=== PATIENT | male | born 1940 | race Caucasian/White ===

== ENCOUNTER 2017-08-15 10:01 | Day surgery (SDC) | payer MEDICARE, OTHER ==
[2017-08-08 15:55] VITALS: BMI 24.3
[~2017-08-15 10:01] MED LIST: DEXAMETHASONE SOD PHOSPHATE 10 MG/ML 1 ML VIAL IV ONE; DEXAMETHASONE SOD PHOSPHATE 4 MG/ML 1 ML VIAL IV ONE; FAMOTIDINE 20 MG/2 ML VIAL IV ONE; HYDROmorphone 0.5 MG/0.5 ML SYRINGE IVP PRN; LACTATED RINGERS 1,000 ML IV SCH; LIDOCAINE 1% 20 ML VIAL (10MG/ML) FOR IV START INTRADERMA PRN; MIDAZOLAM 2 MG/2 ML VIAL IV PRN; ONDANSETRON 4 MG/2 ML VIAL IVP ONE; SCOPOLAMINE 1.5MG/72HR PATCH TRANSDERM ONE; ceFAZolin 1,000 MG in DEXTROSE/WATER 1 50ML.BAG IV ONE
[2017-08-15] MEDS: OXYMETAZOLINE 0.05% NASL SPRAY 1 SPRAY BOTTLE NASAL ONE ×6 (10:59→11:19)
[2017-08-15] MEDS ORDERED: fentaNYL (PF) 50 MCG/ML 2 ML AMP ONE (12:10)
[2017-08-15] MEDS ORDERED: LIDOCAINE 1% INJ 10MG/ML (20 ML MDV) ONE (12:10)
[2017-08-15] MEDS ORDERED: SUCCINYLCHOLINE CHLORIDE 100 MG/5 ML SYR IV ONE (12:10)
[2017-08-15] MEDS ORDERED: PROPOFOL 10 MG/ML 20 ML VIAL IV ONE (12:10)
[2017-08-15] MEDS ORDERED: MIDAZOLAM 2 MG/2 ML VIAL ONE (12:10)
[2017-08-15] MEDS ORDERED: SODIUM CHLORIDE 0.9% 50 ML with ceFAZolin 2,000 MG IV ONE ×2 (12:20)
[2017-08-15] MEDS ORDERED: CEFAZOLIN IV ONE ×3 (12:39)
[2017-08-15] MEDS ORDERED: [UNRECOGNIZED DRUG - OTHER] IV ONE ×3 (12:39)
[2017-08-15] MEDS ORDERED: SODIUM CHLORIDE IV ONE ×3 (12:39)
[2017-08-15] MEDS ORDERED: LIDOCAINE-EPINEPHRINE (PF) 5 ML AMPUL SUBMUCOSAL ONE (12:42)
--- NOTE | 2017-08-15 13:15 | P.OP ---
Date of Procedure: 08/15/17 Preoperative Diagnosis: right tongue ulcer Right base of tongue lesion Chronic maxillary sinusitis Postoperative Diagnosis: Same Procedure(s) Performed: direct microscopic laryngoscopy and biopsy of a right base of tongue lesion Excisional biopsy of a right posterior tongue mass with closure Bilateral direct maxillary antrostomy with lavage Anesthesia: TOLU Surgeon: Rebekah Christian Estimated Blood Loss (ml): 10 Pathology: other (Right tongue and right base of tongue) Condition: stable Disposition: PACU Indications for Procedure: this patient has a lesion of the right tongue with referred pain to the right ear. He also has a lesion of the base the tongue on the right and another one on the lateral posterior tongue. removal was recommended. The patient also had chronic sinusitis maxillary and did well years ago when he had a maxillary antrostomy and lavage. He wished to proceed forward with a repeat lavage. Operative Findings: patient had a friable lesion right base of tongue and another lesion of the right lateral posterior tongue. Patient had rebekah pus coming from the ostiomeatal complexes bilaterally and maxillary sinuses bilaterally. Description of Procedure: this patient was taken to the operative room and placed in the supine position. A general inhalation anesthetic is administered to the patient by mask and subsequently intubated with a cuffed endotracheal tube by the department of anesthesia with a functioning IV line in place. The patient was monitored throughout the entire case by the department of anesthesia. A tooth guard was placed and a Jako laryngoscope was placed into the patient's mouth with care to avoid any trauma to the lips teeth gums or tongue. The entire hypopharynx was evaluated along with evaluation the oropharynx. We reviewed the base of the tongue, vallecula, epiglottis, true and false vocal cords, lateral pharynx, piriform sinuses, and postcricoid space. This was done with microscopic visualization. Percent suspension on a Lewy and a lesion of the right base the tongue was identified and biopsied. Scope was removed tongue was evaluated and the right lateral posterior tongue had another lesion was friable. This area was anesthetized and excised with a 15 blade delicate plastic scissors and a Brown-Lilly forceps and we closed this biopsy with use of a 4 rapid Vicryl in an interrupted type fashion. Excellent approximation was obtained. we then paid attention to the nose were we entered the nose with a the nasal speculum and underneath the inferior turbinates open up a maxillary antrostomy with a Mallika bilaterally. After the maxillary antrostomies and nasal antral windows were open we then inserted a catheter we flushed the sinuses are bilaterally with removal of Rebekah Poss. After the maxillary sinuses were opened directly and lavaged all instrumentation was removed. The patient tolerated this well and a follow-up is scheduled for 1 week.
[2017-08-15 13:22] VITALS: TEMP 96.9
[2017-08-15 14:10] VITALS: RESP 18
[2017-08-15 14:34] VITALS: BP 148/79; PULSE 79
== END 2017-08-15 14:57 | disposition home or self-care (01) ==
LOC: OR 10:01
PROVIDERS: ATTEND Otolaryngology
DX: D36.10 Benign neoplasm of peripheral nerves and autonomic nervous system, unspecified (principal); K14.0 Glossitis; J32.0 Chronic maxillary sinusitis; K21.9 Gastro-esophageal reflux disease without esophagitis; D64.9 Anemia, unspecified; F32.9 Major depressive disorder, single episode, unspecified; K58.9 Irritable bowel syndrome, unspecified; Z90.5 Acquired absence of kidney; N40.0 Benign prostatic hyperplasia without lower urinary tract symptoms; G89.29 Other chronic pain; F41.9 Anxiety disorder, unspecified; Z88.8 Allergy status to other drugs, medicaments and biological substances; Z79.82 Long term (current) use of aspirin; Z79.891 Long term (current) use of opiate analgesic; Z79.899 Other long term (current) drug therapy
CPT/HCPCS: 31536; 41110; 88305; J2250; J1100; J2405; J0690 ×2; J2001; J3010; J0330; J2704

== ENCOUNTER → 2018-07-09 | Outpatient (CLI) | payer OTHER ==
--- NOTE | 2018-07-09 20:09 | CONS ---
CONSULTATION DATE OF SERVICE: 07/09/2018. Claus Jamison is a 77-year-old gentleman has [facility] for tiredness and sleepiness during the day for many years. SLEEP SCHEDULE: Patient's sleep schedule from 11 or 12 midnight until his alarm is on at 6 and then he may stay in bed until 8, but he really does not sleep at that time. FALLING ASLEEP: Sometimes he has problem with falling asleep. He has TV set in bedroom. DURING SLEEP: He usually sleeps on the side position. He snores. May grind his teeth. He wakes up from sleep up to 3 times with nocturia. DURING THE DAY/SLEEP WAKE EVALUATION: In the morning, he wakes up tired, has difficulties to pay attention, falling asleep during the day, worries about his sleep, has problems with memory, concentration, depression, anxiety, sexual dysfunction, and he may take naps any time according to the patient, but he usually does not take any naps. He tries not to because he thinks that might create any problems for him with falling asleep at night and is up his schedule. [place] Sleepiness Scale is 9. PAST MEDICAL HISTORY: 1. History of 7 months after returning back from [place], patient's mind was off. Many years ago, CT scans of the head showed some lesions. 2. BPH. 3. Episodes of dizziness. 4. History of acid reflux in the past. PAST SURGICAL HISTORY: Right kidney removed in nasal surgery in 1966 for nasal septum deviation. MEDICATIONS: Gabapentin, hydrocodone, baclofen, terazosin, amitriptyline, omeprazole, aspirin. SOCIAL HISTORY: Negative for smoking. Alcohol consumption none at the present time. History of overusing alcohol in the past. FAMILY HISTORY: Arthritis, snoring, headaches. REVIEW OF SYSTEMS: Multiple awakenings from sleep with nocturia, significant excessive daytime sleepiness, mild snoring. PHYSICAL EXAM: 77-year-old gentleman without distress. BP 118/69, HR 96, RR 17, height 5 feet 9 inches, weight 170.8. Body mass index 25.1, temperature 98.7, oxygen saturation room air 97%. Oropharynx moderately low position of soft palate. Neck Supple, no JVD. Thyroid is not palpable. LUNGS Clear to percussion and to auscultation. Good air exchange. No wheezing or rhonchi. HEART S1, S2 regular. No murmurs, gallops, or rubs. ABDOMEN: Soft and nontender. Bowel sounds are present. No organomegaly appreciated. EXTREMITIES No clubbing or cyanosis. DINING HOST Awake, alert, and oriented X3. Cranial nerves 2 to 7 intact. There is no fasciculation or atrophy. noted. No focal deficits observed. IMPRESSION: 1. Daytime sleepiness, tiredness. Patient may take naps any time. Differential diagnosis should include narcolepsy and hypersomnia. No history of hypnagogic hallucinations, sleep paralysis or cataplexy. 2. Mild snoring, multiple awakenings from sleep with nocturia and rule out obstructive sleep apnea. 3. Episodes of dizziness. 4. History of old brain lesion on CT scan of the head many years ago according to patient. 5. Posttraumatic stress disorder. 6. History of acid reflux. 7. History of depression. 8. History of anxiety. PLAN: 1. Polysomnography for evaluation of patient's breathing during sleep. 2. CPAP/BiPAP titration if sleep study confirms obstructive sleep apnea-hypopnea syndrome. 3. Preferable position during sleep on the side. 4. No driving if patient feels any sleepiness. 5. I will see patient for follow up visit to explain results of testing and following plan. 6. Multiple sleep latency test if the sleep study will be negative for any physical abnormalities of sleep. 7. We discussed with the patient necessity to increase bedtime to at least 8 hours. He will change time of his alarm to 8:00 am instead of 6 am. Thank you very much for referring this patient for consultation. Sincerely, Gerald Mejía MD, PhD, FAASM Diplomat of [place] [employer] [place] [employer] [facility] MMODL / IJN: [id number] /
== END ==
LOC: SLEEP 14:04
PROVIDERS: ATTEND Internal Medicine
DX: R53.83 Other fatigue (principal); R06.83 Snoring; R35.1 Nocturia; R42 Dizziness and giddiness; F43.10 Post-traumatic stress disorder, unspecified; K21.9 Gastro-esophageal reflux disease without esophagitis; F32.9 Major depressive disorder, single episode, unspecified; F41.9 Anxiety disorder, unspecified; Z86.69 Personal history of other diseases of the nervous system and sense organs; Z79.899 Other long term (current) drug therapy; Z79.82 Long term (current) use of aspirin
CPT/HCPCS: 99211

== ENCOUNTER → 2019-05-13 | Outpatient (CLI) | payer OTHER ==
[2019-05-13 11:25] LABS: HCT 36.9 % (39.0-53.0); HGB 12.3 gm/dL (13.0-17.5); MCH 31.2 pg (25.0-35.0); MCHC 33.3 g/dL (31.0-37.0); MCV 93.8 fL (80.0-100.0); Platelet Count 272 k/uL (150-450); RBC 3.93 m/uL (4.30-5.90); RDW 12.5 % (11.5-15.5); WBC 7.2 k/uL (3.8-10.6)
[2019-05-13 11:37] LABS: Potassium 4.6 mmol/L (3.5-5.1)
== END | disposition home or self-care (01) ==
LOC: LABPAT 10:48
PROVIDERS: ATTEND Internal Medicine Cardiovascular Disease
DX: Z01.812 Encounter for preprocedural laboratory examination (principal); R06.02 Shortness of breath
CPT/HCPCS: 80051; 82565; 84520; 85027

== ENCOUNTER 2019-05-20 06:43 | Day surgery (SDC) | payer OTHER ==
[2019-05-15 11:18] VITALS: BMI 27.3
[~2019-05-20 06:43] MED LIST changes: +ALPRAZolam 0.25 MG TAB PO PRN; +ALPRAZolam 0.5 MG TAB PO PRN; -DEXAMETHASONE SOD PHOSPHATE 10 MG/ML 1 ML VIAL IV ONE; -DEXAMETHASONE SOD PHOSPHATE 4 MG/ML 1 ML VIAL IV ONE; -FAMOTIDINE 20 MG/2 ML VIAL IV ONE; -HYDROmorphone 0.5 MG/0.5 ML SYRINGE IVP PRN; -LACTATED RINGERS 1,000 ML IV SCH; -LIDOCAINE 1% 20 ML VIAL (10MG/ML) FOR IV START INTRADERMA PRN; -MIDAZOLAM 2 MG/2 ML VIAL IV PRN; +NITROGLYCERIN SL TABS 0.4 MG TAB SUBLINGUAL PRN; -ONDANSETRON 4 MG/2 ML VIAL IVP ONE; -SCOPOLAMINE 1.5MG/72HR PATCH TRANSDERM ONE; -ceFAZolin 1,000 MG in DEXTROSE/WATER 1 50ML.BAG IV ONE
[2019-05-20] MEDS ORDERED: ASPIRIN 325 MG TAB PO ONE (07:00)
[2019-05-20] MEDS ORDERED: SODIUM CHLORIDE 0.9% 1,000 ML in EMPTY BAG 1 BAG IV ONE (07:00)
[2019-05-20] MEDS ORDERED: ATORVASTATIN 80 MG TAB PO ONE (07:00)
[2019-05-20 08:13] LABS: Calcium 9.1 mg/dL (8.4-10.2); Potassium 4.2 mmol/L (3.5-5.1)
[2019-05-20] MEDS ORDERED: LIDOCAINE 1% INJ 10MG/ML (20 ML MDV) ONE ×2 (08:44→09:50)
[2019-05-20] MEDS ORDERED: fentaNYL (PF) 50 MCG/ML 2 ML AMP ONE (09:07)
[2019-05-20] MEDS ORDERED: fentaNYL (PF) 50 MCG/ML 2 ML AMP IV ONE (09:11)
[2019-05-20] MEDS ORDERED: MIDAZOLAM 2 MG/2 ML VIAL IV ONE (09:11)
[2019-05-20] MEDS ORDERED: LIDOCAINE 1% INJ 10MG/ML (20 ML MDV) SQ ONE ×2 (09:12→09:51)
[2019-05-20] MEDS ORDERED: BIVALIRUDIN BOLUS 250 MG/50 ML IV ONE (09:58)
[2019-05-20] MEDS ORDERED: BIVALIRUDIN 250 MG in SODIUM CHLORIDE 0.9% 50 ML IV ONE (09:58)
[2019-05-20] MEDS: NITROGLYCERIN 1000MCG/10ML SYRINGE INTRACORON ONE ×2 (10:03→10:36)
[2019-05-20] MEDS ORDERED: IOPAMIDOL-370 125ML BTL INJ ONE ×2 (10:04)
[2019-05-20] MEDS ORDERED: TICAGRELOR 90 MG TAB ONE (10:37)
[2019-05-20] MEDS ORDERED: TICAGRELOR 90 MG TAB PO ONE (10:39)
[2019-05-20] MEDS ORDERED: IOPAMIDOL-370 100ML BTL INJ ONE ×2 (10:40)
[2019-05-20] MEDS ORDERED: HYDROmorphone 1 MG/ML 1 ML SYRINGE ONE (10:42)
[2019-05-20] MEDS ORDERED: HYDROmorphone 1 MG/ML 1 ML SYRINGE IVP ONE (10:44)
[2019-05-20] MEDS ORDERED: NITROGLYCERIN SL TABS 0.4 MG TAB SUBLINGUAL ONE ×2 (10:47)
[2019-05-20] MEDS ORDERED: HYDROcodone/APAP 5-325MG 1 EACH TAB PO PRN (10:59)
[2019-05-20] MEDS ORDERED: RX INFO: IV CONTRAST WAS GIVEN 1 EACH MISC MISCELLANE PRN (10:59)
[2019-05-20] MEDS ORDERED: NITROGLYCERIN SL TABS 0.4 MG TAB SUBLINGUAL PRN (10:59)
[2019-05-20] MEDS ORDERED: ATROPINE SULFATE 0.1 MG/ML 10ML SYRINGE IV PRN (10:59)
[2019-05-20] MEDS ORDERED: ZOLPIDEM 5 MG TAB PO PRN (10:59)
[2019-05-20] MEDS ORDERED: MAG HYDROX/AL HYDROX/SIMETH 30 ML CUP PO PRN (10:59)
[2019-05-20] MEDS ORDERED: PANTOPRAZOLE 40 MG TABLET PO PRN (11:03)
[2019-05-20] MEDS ORDERED: HYDROcodone/APAP 10-325MG 1 EACH TAB PO PRN (11:03)
--- NOTE | 2019-05-20 11:42 | CC ---
CARDIAC CATHETERIZATION REPORT INDICATION: Shortness of breath with abnormal stress test. PROCEDURE NOTE: After obtaining informed consent, left heart catheterization and coronary angiogram are performed via the right femoral artery using standard Kimo catheters. Patient tolerated the procedure well without any obvious immediate complications. A femoral angiogram was performed and Angio-Seal will be deployed for hemostasis. Patient received moderate conscious sedation. Total sedation time was 16 minutes. Patient has renal insufficiency with a creatinine of 1.3 and had been hydrated this morning and will continue to be hydrated. FINDINGS: 1. HEMODYNAMICS: Left ventricular end-diastolic pressure is 16-18 mm. There is no significant gradient across the aortic valve. 2. LEFT VENTRICULOGRAM: Left ventriculogram is not performed. 3. ANGIOGRAPHIC DATA: LEFT MAIN CORONARY ARTERY: Left main coronary artery is a normal-sized vessel and is free of stenosis. Divides into left anterior descending coronary artery and circumflex coronary artery. LAD shows significant stenosis at the origin of the diagonal branch. There is an 80% stenosis and the proximal part of the diagonal branch also has disease. Circumflex coronary artery is a nondominant vessel and is free of significant stenosis. right coronary artery is a large dominant vessel, shows mild to moderate atherosclerotic plaque in its proximal part. CONCLUSION: 1. An 80%-90% stenosis involving mid left anterior descending artery at the origin of a large diagonal branch in the origin is also involved. 2. 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 PLAN: Patient will undergo angioplasty of the LAD. MMODL / IJN: [id number] /
--- NOTE | 2019-05-20 11:42 | LTR ---
DATE OF SERVICE: 05/20/2019 RE: Claus Jamison Dear Dr. Brantley; I performed cardiac catheterization on Claus Jamison, a detailed catheterization note has been forwarded for your records. In brief, the cardiac catheterization reveals significant stenosis involving the LAD and patient will undergo angioplasty of the same. Thank you for giving us the privilege to participate with this pleasant gentleman. Sincerely, MD SHANNAN Rankin / THALIA: [id number] /
[2019-05-20 14:50] VITALS: RESP 18
[2019-05-20] MEDS: GABAPENTIN 300 MG CAP PO SCH ×2 (18:18→21:11)
--- NOTE | 2019-05-20 19:16 | PTCA ---
PERCUTANEOUSTRANS CORORONARY ANGIOGRAPHY DATE OF SERVICE: 05/20/2019. PROCEDURE PERFORMED: PCI of LAD and diagonal branch, a complex bifurcation lesion, LAD stented with a drug- eluting stent. PERFORMED BY: Dr. Crystal Gutierrez. SEDATION: Moderate conscious sedation time was 62 minutes. CLINICAL INFORMATION: Mr. Claus Jamison is a 78-year-old gentleman with a history of hypertension, hyperlipidemia, who sees Dr. Cohen. He had a stress test which revealed a new bundle branch block and also had chest tightness, but the nuclear scan did not reveal any significant ischemia. However, given his high risk symptoms and also presentation, Dr. Cohen performed coronary angiography which revealed an 80% lesion in the mid LAD at the bifurcation of the major diagonal, which was of a good caliber diagonal. He was advised intervention that was performed in the same setting. PROCEDURE NOTE: The existing 6-Jamaican introducer was exchanged over a wire for a 7-Jamaican introducer. I used XBLAD 4.0 guide catheter and this was a 7-Jamaican guide catheter. I cannulated the LAD. The patient received Angiomax bolus and infusion. I used a run-through 300 cm wire and crossed the lesion in the LAD and kept it distally. A short whisper straight wire was used to cross the diagonal lesion and kept distally in the diagonal branch. I performed dilatation of the LAD with a 2.25 caliber 15 mm long NC Trek balloon and then stented this area with a 15 mm long 2.5 caliber Xience stent. Excellent angiographic result was achieved. The proximal half of the lesion was dilated with a 3.0 caliber 8 mm NC Trek balloon up to 12 atmospheres. I was doing proximal vessel optimization. The distal tip of the balloon was kept at the origin of the diagonal branch. I then exchanged the guidewires and took the wire out of the diagonal and advanced this into the LAD and used the LAD wire and advanced this into the diagonal branch. I then tried to advance the same 2.25 15 balloon into the diagonal, but I had difficulty and therefore I took a new 2.25 caliber 15 mm balloon and advanced this and positioned this in the diagonal vessel and a new 2.5 caliber, 15 mm long NC Trek balloon was used for the LAD. Both balloons were positioned appropriately and 2 endeflators were used and simultaneously both balloons were inflated and a kissing balloon dilatation of the bifurcation area was performed. The patient had mild chest discomfort and also a J-point prominence on all precordial leads. Overall, excellent angiographic result was achieved. There was remarkably good angiographic appearance and flow noted in both the LAD and diagonal. The patient received 180 mg of Brilinta. The sheath was taken out and a Perclose device used to secure hemostasis and he was sent to the room in a stable condition. Excellent angiographic result without complication was achieved. Bifurcation stenting was performed. Provisional stenting was done. Diagonal was not stented, but LAD was stented with an excellent angiographic result. The patient should be on dual antiplatelet therapy for at least a minimum of one year. Results were discussed with the patient and family and he was sent to the room in stable condition. MMODL / IJN: [id number] /
[2019-05-20] MEDS ORDERED: LISINOPRIL 10 MG TAB PO SCH (21:00)
[2019-05-20] MEDS ORDERED: DOXAZOSIN 2 MG TAB PO SCH (21:00)
[2019-05-20] MEDS ORDERED: ATORVASTATIN 80 MG TAB PO SCH (21:00)
[2019-05-20] MEDS: METOPROLOL TARTRATE 12.5 MG TAB PO SCH (21:11)
[2019-05-21 07:02] LABS: HCT 34.5 % (39.0-53.0); HGB 11.4 gm/dL (13.0-17.5); MCH 30.8 pg (25.0-35.0); MCHC 33.1 g/dL (31.0-37.0); Mean Platelet Volume 6.2; Platelet Count 220 k/uL (150-450); RBC 3.71 m/uL (4.30-5.90); RDW 12.6 % (11.5-15.5); WBC 5.9 k/uL (3.8-10.6)
[2019-05-21 07:23] LABS: Calcium 9.3 mg/dL (8.4-10.2); Potassium 4.8 mmol/L (3.5-5.1)
[2019-05-21] MEDS ORDERED: ASPIRIN 81 MG PO SCH (09:00)
[2019-05-21] MEDS ORDERED: TICAGRELOR 90 MG TAB PO SCH (09:00)
[2019-05-21 09:01] LABS: Eosinophils # (M) 0.12 k/uL (0-0.7); Lymphocytes # (M) 0.77 k/uL (1.0-4.8); Monocytes # (M) 0.41 k/uL (0-1.0); Neutrophils % (M) 78 %; Nucleated Red Blood Cells 0 /100 WBC (0-0); Total Cells Counted 100
[2019-05-21 09:02] LABS: Poikilocytosis (M) Present
[2019-05-21] MEDS: GABAPENTIN 300 MG CAP PO SCH (09:22)
[2019-05-21] MEDS: METOPROLOL TARTRATE 12.5 MG TAB PO SCH (09:22)
[2019-05-21] MEDS: SODIUM CHLORIDE 0.9% 1,000 ML IV SCH (09:29)
--- NOTE | 2019-05-21 10:27 | P.PN ---
Subjective Progress Note Date: 05/21/19 Discharge note This is a pleasant 78-year-old gentleman who was brought to the hospital because of a positive stress test, he underwent a cardiac catheterization by Dr. Meza yesterday with subsequent angioplasty and stenting of the LAD. The patient was seen and examined this morning, he states earlier this morning while lying in bed he did have a discomfort in his right flank area, he got up and went to sit in the chair, pain free at the time of my examination. An EKG was performed this morning which showed a normal sinus rhythm with no changes from post-PCI. Blood pressure 110/60 with a heart rate in the 70s, 97% on room air. White blood cell count 5.9, hemoglobin 11.4, platelet count 220. Sodium 141, potassium 4.8, BUN 20 and creatinine 1.3. Objective - Vital Signs Vital signs: Vital Signs Temp 98.8 F 05/21/19 04:00 Pulse 72 05/21/19 04:00 Resp 18 05/21/19 04:00 BP 109/67 05/21/19 04:00 Pulse Ox 97 05/21/19 04:00 Intake & Output 05/20/19 05/21/19 05/21/19 18:59 06:59 18:59 Intake Total 560 Output Total 300 500 Balance 260 -500 Weight 83.915 kg 83.7 kg Intake: IV 360 Intake, IV Titration 200 Amount Sodium Chloride 0.9% 1, 200 000 ml In Empty Bag 1 bag @ 100 mls/hr IV .Q10H ONE Rx#:[id number] Output: Urine 300 500 Other: Voiding Method Toilet Urinal # Voids 1 - Exam PHYSICAL EXAMINATION: GENERAL: 78-year-old gentleman in no acute distress at the time of my examination HEENT: Head is atraumatic, normocephalic. Pupils equal, round. Sclera anicteric. Conjunctiva are clear. Mucous membranes of the mouth are moist. Neck is supple. There is no elevated jugular venous pressure. No carotid bruit is heard. HEART EXAMINATION: Heart S1, S2 normal. No murmur or gallop heard. CHEST EXAMINATION: Lungs are clear to auscultation and precussion. No chest wall tenderness is noted on palpation or with deep breathing. ABDOMEN: Soft, nontender. Bowel sounds are heard. No organomegaly noted. EXTREMITIES: 2+ peripheral pulses with no evidence of peripheral edema and no calf tenderness noted. Right groin soft, no evidence of any hematoma. NEUROLOGIC patient is awake, alert and oriented 3 . . - Labs CBC & Chem 7: 05/21/19 06:21 05/21/19 06:21 Labs: Abnormal Lab Results - Last 24 Hours (Table) 05/21/19 05/21/19 Range/Units 06:21 06:21 RBC 3.71 L (4.30-5.90) m/uL Hgb 11.4 L (13.0-17.5) gm/dL Hct 34.5 L (39.0-53.0) % Lymphocytes # (Manual) 0.77 L (1.0-4.8) k/uL Chloride 110 H (98-107) mmol/L Creatinine 1.35 H (0.66-1.25) mg/dL Assessment and Plan Plan: Assessment and plan #1 status post angioplasty and stenting of the LAD #2 hyperlipidemia #3 hypertension #4 history of right nephrectomy Plan Patient may be discharged home today. We'll make him a follow-up appointment to see Dr. Cohen in the office post discharge. Discharge medications include aspirin 81 mg daily, Lipitor 80 mg daily, Cardura 2 mg daily, Neurontin 300 mg one tablet by mouth 4 times a day, Zestril 10 mg daily, metoprolol 12-1/2 mg one tablet by mouth twice a day, Brilinta 90 mg by mouth twice a day and sublingual nitroglycerin as needed for chest pain. DNP note has been reviewed, I agree with a documented findings and plan of care. Patient was seen and examined.
[2019-05-21 10:48] VITALS: BP 98/60; PULSE 82; TEMP 97.9
== END 2019-05-21 12:16 | disposition home or self-care (01) ==
LOC: CATHCVL 06:43 → 3SCARD 13:46 → CATHCVL 05-21 12:16
PROVIDERS: ATTEND Internal Medicine Cardiovascular Disease
DX: I25.10 Atherosclerotic heart disease of native coronary artery without angina pectoris (principal); I10 Essential (primary) hypertension; E78.5 Hyperlipidemia, unspecified; Z79.899 Other long term (current) drug therapy
CPT/HCPCS: 93458; 92921; 80048 ×2; 85025; C9600; C1769 ×3; C1887; C1725 ×3; C1894; C1760; C1874; J2250; J2001; J3010; J1170; J0583; Q9967 ×2

== ENCOUNTER 2021-05-11 08:24 | Day surgery (SDC) | payer OTHER ==
[2021-05-10 08:33] VITALS: BMI 20.7
[~2021-05-11 08:24] MED LIST changes: -ALPRAZolam 0.25 MG TAB PO PRN; -ALPRAZolam 0.5 MG TAB PO PRN; -NITROGLYCERIN SL TABS 0.4 MG TAB SUBLINGUAL PRN; +SODIUM CHLORIDE 0.9% 1,000 ML IV SCH
[2021-05-11] MEDS ORDERED: IV FLUID CONTINUATION 500 ML IV ONE (09:09)
[2021-05-11 09:21] VITALS: BP 148/72; PULSE 67; RESP 14; TEMP 98.1
--- NOTE | 2021-05-11 14:51 | P.EPPROC ---
- EP Procedure Note Electrophysiology Procedure Note: Diagnosis Recurrent loss of consciousness Twelve-lead EKG shows sinus rhythm normal CT right bundle branch block pattern normal ST segments Baseline artifact Tilt table test per protocol Baseline blood pressure 135/63 mmHg Baseline heart rate 56 beats a minute patient was tilted upright at an angle of 70 He experienced facial flushing No loss of consciousness There is in immediate drop in his blood pressure 103/50. 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
== END 2021-05-11 10:58 | disposition home or self-care (01) ==
LOC: CATHEP 08:24
PROVIDERS: ATTEND Internal Medicine Clinical Cardiac Electrophysiology
DX: I45.10 Unspecified right bundle-branch block (principal); Z20.822 Contact with and (suspected) exposure to COVID-19
CPT/HCPCS: 87635; 93660